=== PATIENT | male | born 1970 | race Caucasian/White ===

== ENCOUNTER 2017-11-16 17:37 | Emergency (ER) | payer SELFPAY ==
[~2017-11-16] VITALS: Ht 180.3 cm; Wt 86.2 kg
[2017-11-16 17:37] VITALS: BP_SYST 136
--- NOTE | 2017-11-16 17:40 | NUR ---
Patient triaged and placed in waiting room. VSS and patient appears in no acute distress at this time. Accompanied by FRIEND, awaiting available bed, and MD notified of need for MSE.
--- NOTE | 2017-11-16 18:13 | NUR ---
Patient to ER bed 5 to gown for evaluation. Side rails up. Report given to Nate GUAMAN.
--- NOTE | 2017-11-16 18:15 | NUR ---
Pt complains of having pain to right flank and radiates to right lower abdomen since Wednesday. Pt states he feels nauseous but has not vomited. Pt states he has constipation as well. No other injuries/complaints per patient or noted.
--- NOTE | 2017-11-16 18:20 | NUR ---
ER Dr. Avilez at bedside examining patient.
[2017-11-16] MEDS: ONDANSETRON 4 MG ODT TAB PO ONE (18:39)
[2017-11-16] MEDS: fentaNYL CITRATE/PF 100 MCG/2 ML AMP IM ONE (18:40)
--- NOTE | 2017-11-16 18:40 | NUR ---
Medication was given, pt tolerated well. No adverse reaction, will continue to monitor.
[2017-11-16 19:16] VITALS: BP_SYST 128
--- NOTE | 2017-11-16 19:16 | NUR ---
Patient given written and verbal discharge instructions and verbalizes understanding. ER MD discussed with patient the results and treatment provided. Patient in stable condition. ID arm band removed. Rx of Tramadol and Motrin given. Patient educated on pain management and to follow up with PMD. Pain Scale 2. Opportunity for questions provided and answered.
== END 2017-11-16 19:16 | disposition home or self-care (01) ==
LOC: SED 17:37
DX: N23 Unspecified renal colic (principal); R03.0 Elevated blood-pressure reading, without diagnosis of hypertension
CPT/HCPCS: 74176; 96372; 99284; J3010; Q0162

== ENCOUNTER 2018-03-24 14:35 | Inpatient (IN) | payer SELFPAY ==
[~2018-03-24] VITALS: Ht 185.4 cm; Wt 89.4 kg
--- NOTE | 2018-03-24 14:36 | NUR ---
Patient placed in bed 2.
--- NOTE | 2018-03-24 14:36 | NUR ---
Pt bib ALS c/c chest pain received ASA 162mg PO prior to arrival. Pt denies chest pain upon arrival.
[2018-03-24 14:37] VITALS: BP_SYST 156
--- NOTE | 2018-03-24 14:37 | NUR ---
Pt was brought in by ALS, complaining of chest pain. Per paramedics, pt was at [facility] for refill of blood pressure medications. Staff at clinic ended up calling 911 due to patient's "tightness of chest and shortness of breath." Pt had "chest discomfort" since last night but went away. Upon ED, pt states no chest discomfort, shortness of breath, N/V, or chest pain. No other injuries/complaints per patient or noted.
--- NOTE | 2018-03-24 14:38 | NUR ---
MD Hooker at bedside.
--- NOTE | 2018-03-24 14:50 | NUR ---
# 18 gauge angiocath placed to Left antecubital. Use of asceptic technique. Opsite placed over site. Blood return noted. Blood for lab drawn from site. Flushed with 10 cc of normal saline. No evidence of infiltration noted. Patient tolerated well.
[2018-03-24 15:10] LABS: BASOPHILS # (AUTO) 0.1 K/uL (0.0-0.2); BASOPHILS % (AUTO) 1.5 % (0.0-2.0); EOSINOPHILS # (AUTO) 0.1 K/uL (0.0-0.4); EOSINOPHILS % (AUTO) 1.3 % (0.0-4.0); HEMATOCRIT 43.7 % (36-54); LYMPHOCYTES # (AUTO) 1.6 K/uL (1.0-5.5); LYMPHOCYTES % (AUTO) 28.8 % (20.5-51.5); MEAN CORPUSCULAR HEMOGLOBIN 33 pg (27-31); MEAN CORPUSCULAR HGB CONC 34 % (32-36); MEAN CORPUSCULAR VOLUME 95 fL (79.0-98.0); MONOCYTES # (AUTO) 0.4 K/uL (0.0-1.0); MONOCYTES % (AUTO) 6.9 % (1.7-9.3); NEUTROPHILS # (AUTO) 3.2 K/uL (1.8-7.7); NEUTROPHILS % (AUTO) 61.5 % (40.0-70.0); PLATELET COUNT (AUTO) 195 K/uL (130-430); RED BLOOD CELL COUNT(AUTO) 4.59 MIL/uL (4.2-6.2); RED CELL DISTRIBUTION WIDTH 11.8 % (9.0-15.0); WHITE BLOOD COUNT (AUTO) 5.4 K/uL (4.8-10.8)
[2018-03-24 15:25] LABS: CALCIUM 8.9 mg/dL (8.4-11.0); CREATININE 1.32 mg/dL (0.55-1.30); POTASSIUM 3.6 mmol/L (3.5-5.1)
[2018-03-24 15:29] LABS: ALBUMIN 3.8 g/dL (3.4-4.8); TOTAL BILIRUBIN 0.5 mg/dL (0.0-1.0)
[2018-03-24 15:30] LABS: PROTHROMBIN TIME 10.1 SECS (9.5-12.5)
[2018-03-24] MEDS ORDERED: ATEN50TA PO (15:54)
--- NOTE | 2018-03-24 15:54 | NUR ---
Medication reconciliation completed with information provided by patient. Any prior medication reconciliation on file was reviewed and corrected.
--- NOTE | 2018-03-24 15:54 | NUR ---
Telemetry strip printed, interpreted as SINUS RHYTHM WITH BUNDLE BRANCH BLOCK at 68 bpm, and placed on the chart.
[2018-03-24] MEDS ORDERED: IBUP-1969 PO (16:13)
[2018-03-24 16:16] LABS: CKMB RELATIVE INDEX 0.4 (0.0-2.9); CREATINE KINASE MB 2.3 ng/mL (0-3.6)
--- NOTE | 2018-03-24 16:19 | NUR ---
Transfer to Telemetry via ACLS protocol. Licensed nurse present. IV present no signs or symptoms of infiltration.
--- NOTE | 2018-03-24 16:19 | NUR ---
Patient will be admitted to care of Dr. Orellana. Admitted to Telemetry unit. Will go to room 135. Belongings list completed. Summary report printed. Report will be given at bedside.
--- NOTE | 2018-03-24 16:19 | NUR ---
ADMISSION NOTE Received patient from ER via [facility], received report from CHUTE WORKER. Patient admitted with diagnosis of CHEST PAIN. Patient oriented to hospital routine, call light, toileting and safety-patient verbalized understanding.
--- NOTE | 2018-03-24 16:22 | NUR ---
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
[2018-03-24 16:34] VITALS: BP_SYST 153
[2018-03-24 16:36] LABS: BILIRUBIN,URINE NEGATIVE (NEGATIVE); BLOOD, URINE NEGATIVE (NEGATIVE); CLARITY/URINE CLEAR (CLEAR); COLOR,URINE YELLOW (YELLOW); GLUCOSE,URINE NEGATIVE (NEGATIVE); KETONES,URINE 1+ (NEGATIVE); LEUKOCYTE ESTERASE ,URINE NEGATIVE (NEGATIVE); NITRITE, URINE NEGATIVE (NEGATIVE); PROTEIN URINE NEGATIVE (NEGATIVE); UROBILINOGEN,URINE 0.2 (0.2-1.0)
[2018-03-24 16:50] LABS: BARBITURATE, URINE NEGATIVE (NEG <=200); BENZODIAZEPINE, URINE NEGATIVE (NEG <=150); CANNABINOID, URINE NEGATIVE (NEG <=50); COCAINE, URINE NEGATIVE (NEG <=150); METHAMPHETAMINES SCREEN,URINE NEGATIVE (NEG <=500); OPIATE, URINE NEGATIVE (NEG <=100); PHENCYCLIDINE SCREEN,URINE NEGATIVE (NEG <=25); URINE AMPHETAMINE NEGATIVE (NEG <=500); URINE METHADONE NEGATIVE (NEG <=200)
[2018-03-24 16:51] LABS: UR TRICYCLIC ANTIDEPRESSANTS NEGATIVE (NEG <=300); URINE OXYCODONE SCREEN NEGATIVE (NEG <=100); URINE PROPOXYPHENE SCREEN NEGATIVE (NEG <=300)
[2018-03-24] MEDS ORDERED: LOSARTAN/HYDROCHLOROTHIAZIDE TAB (HYZAAR 50-12.5 MG) PO SCH (19:00)
[2018-03-24] MEDS ORDERED: LOSARTAN POTASSIUM 50 MG TABLET (COZAAR) PO ONE (19:30)
[2018-03-24] MEDS ORDERED: HYDROCHLOROTHIAZIDE 12.5 MG CAPSULE (HCTZ) PO ONE (19:30)
[2018-03-24 19:46] VITALS: BP_SYST 155
--- NOTE | 2018-03-24 20:08 | NUR ---
PM SHIFT ASSESSMENT RECEIVED PATIENT LYING IN BED AOX4, DX: CHEST PAIN, PATIENT PAIN LEVEL 1/10 AT THIS TIME, NO SOB NOTED, VITAL SIGNS STABLE. ON ROOM AIR, IV LINE TO LAC INTACT AND PATENT, NO SIGNS OF INFILTRATION NOTED. PLAN OF CARE DISCUSSED, VERBALIZED UNDERSTANDING, COMPLIANT. ORIENTED TO USE CALL LIGHT FOR NURSE ASSISTANCE, LIGHT AND PHONE WITHIN REACH. DR. LABOY AT PATIENT'S BEDSIDE EARLIER, NEW MEDICATIONS ORDERED. PATIENT EDUCATED AND ADMINISTERED NEW MEDICATION ORDERS, WILL RECHECK BLOOD PRESSURE SHORTLY.
[2018-03-24 21:11] VITALS: BP_SYST 147
--- NOTE | 2018-03-24 21:29 | NUR ---
RN ROUNDS Patient awake, resting quietly in bed, denies any chest pain at this time, rechecked blood pressure, WNL. Dr. Orellana at patient's bedside, no new orders at this time.
[2018-03-24] MEDS ORDERED: INSULIN REGULAR, HUMAN 100 UNITS/ML, 10 ML VIAL (novoLIN R) SUBCUT PRN (21:45)
[2018-03-24] MEDS ORDERED: DEXTROSE 50% JECT 50 ML DISP.SYRIN IVP PRN (21:45)
[2018-03-24] MEDS ORDERED: ACETAMINOPHEN 325 MG TABLET PO PRN (22:15)
[2018-03-24] MEDS ORDERED: TEMAZEPAM 15 MG CAPSULE PO PRN (22:15)
--- NOTE | 2018-03-24 22:21 | NUR ---
RN ROUNDS Patient awake, denies any chest pain, friend at bedside, updated on plan of care and new orders, verbalized understanding. Call light remains within reach, safety measures in place, will monitor.
[2018-03-24 23:30] VITALS: BP_SYST 148
[2018-03-25] VITALS (8 sets, daily range): BP systolic 94–148
--- NOTE | 2018-03-25 00:33 | NUR ---
RN ROUNDS Patient resting quietly, denies any pain at this time, vital signs stable. Call light within reach, safety measures in place. Will monitor.
--- NOTE | 2018-03-25 02:02 | NUR ---
paged paged for Dr Orellana, dialed . s/w Med.
[2018-03-25] MEDS ORDERED: ONDANSETRON HCL 4 MG/2 ML VIAL IVP PRN (02:15)
[2018-03-25] MEDS ORDERED: ONDANSETRON HCL 4 MG/2 ML VIAL ONE (02:23)
--- NOTE | 2018-03-25 02:34 | NUR ---
RN SANGTIA/ Patient HR dropped to 30s according to tele monitor. Checked on patient and patient up and ambulated to bathroom with steady gait. Denied any chest pain. Came back to check on patient after a couple of minutes due to heart rate remaining in the 30s. Patient out of bathroom and sitting on side of his bed, diaphoretic, states he is dizzy and nauseated. Patient's vital signs taken, placed on 02 2l NC. Patient stated " I passed out in the bathroom" when asked if patient fell, patient stated " when I woke up I was on the floor". Patient denies hitting his head. No injury noted to head. Paged Dr. Orellana, called back, updated him on patient's status and stated he passed out in the bathroom. New orders for nausea medication given and for another urine drug screen. No other orders given. Administered zofran 4 mg IVP for nausea. Patient's vital signs stable at this time. Educated patient to be on bedrest for now and not to ambulate without assistance. Verbalized understanding. Safety measures in place, bed alarm on. Addendum: 03/25/18 at 0254 by Lucila Poon RN blood sugar checked, 118.
--- NOTE | 2018-03-25 04:32 | NUR ---
RN ROUNDS Patient asleep, respirations even and unlabored, heart rate 59, vital signs stable. Safety measures in place, bed alarm on, call light within reach, will closely monitor.
--- NOTE | 2018-03-25 06:39 | NUR ---
CLOSING NOTE Patient awake, c/o of a headache, tylenol 650 mg po given, patient educated to be on bed rest for now, urinal at bedside. Vital signs stable. Patient needs attended to, fall and safety measures in place, call light remains within reach, will monitor until report given to bedside nurse.
[2018-03-25 06:48] LABS: BASOPHILS % (AUTO) 0.5 % (0.0-2.0); EOSINOPHILS # (AUTO) 0.1 K/uL (0.0-0.4); EOSINOPHILS % (AUTO) 1.7 % (0.0-4.0); HEMATOCRIT 45.2 % (36-54); HEMOGLOBIN 15.6 g/dL (14.0-18.0); LYMPHOCYTES # (AUTO) 1.3 K/uL (1.0-5.5); LYMPHOCYTES % (AUTO) 20.6 % (20.5-51.5); MEAN CORPUSCULAR HEMOGLOBIN 33 pg (27-31); MEAN CORPUSCULAR HGB CONC 35 % (32-36); MEAN CORPUSCULAR VOLUME 96 fL (79.0-98.0); MONOCYTES # (AUTO) 0.5 K/uL (0.0-1.0); MONOCYTES % (AUTO) 7.7 % (1.7-9.3); NEUTROPHILS # (AUTO) 4.6 K/uL (1.8-7.7); NEUTROPHILS % (AUTO) 69.5 % (40.0-70.0); PLATELET COUNT (AUTO) 191 K/uL (130-430); RED BLOOD CELL COUNT(AUTO) 4.73 MIL/uL (4.2-6.2); RED CELL DISTRIBUTION WIDTH 11.9 % (9.0-15.0); WHITE BLOOD COUNT (AUTO) 6.5 K/uL (4.8-10.8)
[2018-03-25 07:14] LABS: ALBUMIN 3.7 g/dL (3.4-4.8); CALCIUM 9.4 mg/dL (8.4-11.0); CREATININE 1.43 mg/dL (0.55-1.30); FREE T4 (FREE THYROXINE) 1.2 ng/dL (0.6-1.6); POTASSIUM 3.7 mmol/L (3.5-5.1); THYROID STIMULATING HORMONE 2.53 uIu/mL (0.34-4.82); TOTAL BILIRUBIN 0.7 mg/dL (0.0-1.0)
--- NOTE | 2018-03-25 07:36 | NUR ---
Notes bed alarm went off, pt seen attempting to get out of bed, pt educated on use of call light and told to call for assistance, pt verbalized understanding, pt offered toileting, pt refused toileting, no additional needs at this time, fall precautions in place, bed alarm on, bed in low position, side rails up x2, call light within reach.
--- NOTE | 2018-03-25 08:00 | NUR ---
notes- Pt seems upset. Pt stated that he does not want to be treated like a prisoner. he refused to use urinal and bed alarm. Pt stated that he feels fine and does not feel dizzy anymore. Reinforce teachings for safety and call especially when he is getting out of bed. Pt verbalize understanding at this time. Assisted to the bathroom and back to bed. denies any chest pain, dizziness or shortness of breath. will monitor.
[2018-03-25] MEDS ORDERED: LOSARTAN POTASSIUM 50 MG TABLET (COZAAR) PO SCH (09:00)
[2018-03-25] MEDS ORDERED: HYDROCHLOROTHIAZIDE 12.5 MG CAPSULE (HCTZ) PO SCH (09:00)
[2018-03-25] MEDS: LOSARTAN POTASSIUM 50 MG TABLET (COZAAR) PO SCH (09:00)
--- NOTE | 2018-03-25 09:33 | NUR ---
MD Rounds/Medication MD rounds with Dr. Richardson, doctor gave orders to hold morning BP meds.
--- NOTE | 2018-03-25 09:40 | NUR ---
Notes pt resting in bed, pt educated about morning meds and MD orders to hold morning medications, pt verbalized understanding, no additional needs at this time, fall and aspiration precautions in place.
[2018-03-25] MEDS ORDERED: NS 100 ML IV ONE (10:15)
--- NOTE | 2018-03-25 10:52 | NUR ---
Paged Paged Dr. Orellana, pt complaining of headache, awaiting call back.
--- NOTE | 2018-03-25 11:30 | NUR ---
Paged Paged Dr. Orellana regarding pain medication for pt, pt reporting increasing migraine headache, awaiting call back.
[2018-03-25] MEDS ORDERED: SUMAtriptan SUCCINATE 6 MG/0.5 ML VIAL SUBCUT PRN (12:15)
--- NOTE | 2018-03-25 12:19 | NUR ---
Spoke with MD Spoke with Dr. Orellana, aware of pt complaint of pain, new orders received.
--- NOTE | 2018-03-25 12:43 | NUR ---
Pharmacy called pharmacy regarding PRN pain medication order, awaiting input into eMar.
--- NOTE | 2018-03-25 13:05 | NUR ---
Medication/Pain management pt educated on nonpharmaceutical pain management techniques, pt educated on PRN pain medication use and side effects, pt verbalized understanding, pt tolerated medication administration well, no additional needs at this time, fall and aspiration precautions in place.
[2018-03-25 13:58] LABS: BARBITURATE, URINE NEGATIVE (NEG <=200); BENZODIAZEPINE, URINE NEGATIVE (NEG <=150); CANNABINOID, URINE NEGATIVE (NEG <=50); COCAINE, URINE NEGATIVE (NEG <=150); METHAMPHETAMINES SCREEN,URINE NEGATIVE (NEG <=500); OPIATE, URINE NEGATIVE (NEG <=100); PHENCYCLIDINE SCREEN,URINE NEGATIVE (NEG <=25); UR TRICYCLIC ANTIDEPRESSANTS NEGATIVE (NEG <=300); URINE AMPHETAMINE NEGATIVE (NEG <=500); URINE METHADONE NEGATIVE (NEG <=200); URINE OXYCODONE SCREEN NEGATIVE (NEG <=100); URINE PROPOXYPHENE SCREEN NEGATIVE (NEG <=300)
[2018-03-25] MEDS: NACL 0.9% 1,000 ML IV SCH (16:17)
--- NOTE | 2018-03-25 16:21 | NUR ---
RN Rounds/Medication pt educated on purpose of IV fluids, pt verbalized understanding, pt resting in bed, family at bedside, no complaints of pain, no shortness of breath, no chest pain, no additional needs at this time, fall and aspiration precautions in place, call light within reach.
--- NOTE | 2018-03-25 18:00 | NUR ---
RN Rounds pt resting in bed, pt denies any pain at this time, no chest pain, no shortness of breath, IV site patent and infusing, IV dressing dry, clean, and intact, no additional needs at this time, fall and aspiration precautions in place.
--- NOTE | 2018-03-25 18:54 | NUR ---
Closing pt resting in bed, no complaints of pain, no chest pain, no shortness of breath, denies any dizziness, IV patent and infusing, IV site clean, dry, and intact, no additional needs at this time, will endorse care to jose miguel carcamo RN.
--- NOTE | 2018-03-25 19:10 | NUR ---
OPENING NOTES Received SBAR report from dayshift RN. Patient is awake/alert/oriented. No acute distress noted: 137/78 87 17 98.5 95% room air, 0/10 pain/discomfort at this time. IV site noted to left AC 18G and is infusing NS @ 70ml/hr. Verified patency with good blood return/flush. Introduced myself, updated whiteboard, discussed plan of care. Fall precautions noted and discussed. Bed to lowest position, 3 side rails raised, call light within reach, bed alarm activated. Will continue to monitor patient.
--- NOTE | 2018-03-25 21:05 | NUR ---
ROUNDS Patient is awake/alert/oriented, watching television. Respirations are even and non-labored, so signs of acute distress. He does not need anything at this time. Bed to lowest position, 2 upper side rails raised bilaterally, call light within reach, bed alarm activated. Will continue to monitor patient.
--- NOTE | 2018-03-25 22:03 | NUR ---
LIVESTOCK JUDGING COACH CALLED - Telemetry battery low Saw patient, changed batteries, verified function. Patient does not need anything at this time.
--- NOTE | 2018-03-26 00:21 | NUR ---
ROUNDS Patient is sleeping, eyes closed with no acute distress noted. Symmetric rise and fall of chest with respirations @ 16/min. IV site is clean/dry/intact with NS infusing @ 70ml/hr. Bed to lowest position, 2 upper side rails raised bilaterally, call light within reach, bed alarm activated. Will continue to monitor patient.
[2018-03-26 01:02] VITALS: BP_SYST 134
--- NOTE | 2018-03-26 02:30 | NUR ---
ROUNDS Patient is resting comfortably with eyes closed but easily arouses to light stimulation. No shortness of breath noted; 16/min. IV site clean/dry/intact with no signs of infiltration. Bed to lowest position, 3 side rails raised, bed alarm activated, call light within reach. Will continue to monitor patient.
--- NOTE | 2018-03-26 04:06 | NUR ---
ROUNDS Patient is currently sleeping, eyes closed with no labored breathing. IV site is clean/dry/intact. Bed to lowest position, 3 side rails raised, bed alarm activated, call light within reach. Will continue to monitor patient.
[2018-03-26] MEDS: NACL 0.9% 1,000 ML IV SCH (05:11)
--- NOTE | 2018-03-26 05:13 | NUR ---
ROUNDS Patient resting but wakes up as I enter. He does not need anything at this time. He says he rested really well. Changed IVF as scheduled. IV site is clean/dry/intact and infusing NS @70ml/hr. Bed to lowest position, 2 side rails raised bilaterally, call light within reach, bed alarm activated. Will continue to monitor patient.
--- NOTE | 2018-03-26 06:58 | NUR ---
CLOSING NOTES All needs, interventions, expectations met by noc shift RN. Fall precautions upheld throughout shift. Labs drawn this am still pending. Care of patient to be endorsed to dayshift RN.
[2018-03-26 07:16] LABS: CALCIUM 9.2 mg/dL (8.4-11.0); CREATININE 1.49 mg/dL (0.55-1.30); POTASSIUM 3.8 mmol/L (3.5-5.1)
--- NOTE | 2018-03-26 07:35 | NUR ---
OPENING NOTE PATIENT REPORT RECEIVED FROM SENIOR OFFICE ASSISTANT NURSE, ROWENA IQBAL. PATIENT RESTING COMFORTABLY. PREVIOUSLY HAD EPISODE OF FAINTING IN RESTROOM. PATIENT DENIES DIZZINESS OR NAUSEA AT THIS TIME. PATIENT DENIES ANY PAIN, AND HAS NO NOTABLE SIGNS OF DISTRESS AT THIS TIME. PATIENT ENCOURAGED TO CALL IF NEEDS [facility]. WILL CONTINUE TO FOLLOW UP AND MONITOR PATIENT FOR CHANGES IN STATUS.
[2018-03-26 08:00] VITALS: BP_SYST 134
--- NOTE | 2018-03-26 09:40 | NUR ---
NOTE PATIENT RESTING COMFORTABLY. NEEDS ARE MET AT THIS TIME. PATIENT ENCOURAGED TO CALL IF NEEDS [facility]. PATIENT WOULD LIKE TO GO HOME IF POSSIBLE. DR. MATHIS AND DR. HOPE TO SEE. PATIENT AWARE. WILL CONTINUE TO FOLLOW UP AND MONITOR.
[2018-03-26] MEDS: LOSARTAN POTASSIUM 50 MG TABLET (COZAAR) PO SCH (09:42)
--- NOTE | 2018-03-26 11:45 | NUR ---
PATIENT RESTING: Patient resting quietly. No acute distress noted. Vital signs within normal range. Patient would like to be discharge home, will follow up with MD when available.
[2018-03-26 12:00] VITALS: BP_SYST 133
--- NOTE | 2018-03-26 13:45 | NUR ---
NOTE PATIENT RESTING COMFORTABLY. NEEDS ARE MET AT THIS TIME. PATIENT DENIES CHEST PAIN, SHORTNESS OF BREATH, NAUSEA, AND DIZZINESS AT THIS TIME. PATIENT ENCOURAGED TO CALL IF NEEDS [facility]. BELONGINGS WITHIN REACH, AND IVF RUNNING PER MD ORDERS. WILL CONTINUE TO FOLLOW UP AND MONITOR PATIENT FOR CHANGES IN STATUS.
[2018-03-26] MEDS ORDERED: LOSA50TA3 PO (15:47)
--- NOTE | 2018-03-26 15:50 | NUR ---
NOTE PATIENT WAS SEEN BY DR. HOPE. ORDERED STAT RENAL ULTRASOUND TO EVALUATE HIGH CREATININE LEVELS. PATIENT AWARE IF U/S IS NORMAL, OKAY TO BE DISCHARGED HOME. WILL CALL RADIOLOGY TO VERIFY CALL IN OF [employer] TECH.
--- NOTE | 2018-03-26 16:00 | NUR ---
NOTE VERIFIED WITH RADIOLOGY THE US TECH WAS CALLED IN, CONFIRMED. PATIENT AWARE OF PENDING EXAM. WILL CONTINUE TO FOLLOW UP AND MONITOR.
[2018-03-26 18:17] VITALS: BP_SYST 132
--- NOTE | 2018-03-26 18:40 | NUR ---
D/C Patient Patient given medication reconciliation form and D/C instructions. Exit Care provided. Patient verbalized understanding. MD discussed with patient the results and treatment provided. Ambulatory with steady gait for discharge to home. Patient in stable condition, ID band removed. IV catheter removed, intact and dressing applied, no active bleeding. Rx of LOSARTAN given. Patient educated on pain management. All belongings sent with patient.
== END 2018-03-26 18:41 | disposition home or self-care (01) | DRG 313 ==
LOC: SED 14:35 → STU 15:55
PROVIDERS: ADMIT Internal Medicine; ATTEND Internal Medicine
DX: R07.89 Other chest pain (principal); N17.0 Acute kidney failure with tubular necrosis; I10 Essential (primary) hypertension; E86.0 Dehydration; Z91.19 Patient's noncompliance with other medical treatment and regimen
CPT/HCPCS: 36415; 71045; 76770; 80048; 80053; 80061; 80307; 81003; 82550-TC; 82553-TC; 82962; 83735-TC; 83880; 84439; 84443-TC; 84484; 85025; 85379; 85610-TC; 85730-TC; 93005; 93306; 99285; J2405; J3030; J7030

== ENCOUNTER 2018-07-01 08:15 | Outpatient (CLI) | payer SELFPAY ==
[~2018-07-01 08:15] MED LIST: LOSA50TA3 PO
== END 2018-07-01 20:21 | disposition home or self-care (01) ==
LOC: SRD 08:15
DX: N20.0 Calculus of kidney (principal)
CPT/HCPCS: 74018

== ENCOUNTER 2018-10-24 07:34 | Emergency (ER) | payer SELFPAY ==
[~2018-10-24] VITALS: Ht 180.3 cm; Wt 80.3 kg
[2018-10-24 07:46] VITALS: BP_SYST 155
[2018-10-24 08:24] LABS: BILIRUBIN,URINE NEGATIVE (NEGATIVE); BLOOD, URINE NEGATIVE (NEGATIVE); CLARITY/URINE CLEAR (CLEAR); COLOR,URINE YELLOW (YELLOW); GLUCOSE,URINE NEGATIVE (NEGATIVE); KETONES,URINE NEGATIVE (NEGATIVE); LEUKOCYTE ESTERASE ,URINE NEGATIVE (NEGATIVE); NITRITE, URINE NEGATIVE (NEGATIVE); PROTEIN URINE NEGATIVE (NEGATIVE); UROBILINOGEN,URINE 0.2 (0.2-1.0)
[2018-10-24 08:29] LABS: HEMATOCRIT 41.3 % (36-54); LYMPHOCYTES # (AUTO) 1.2 K/uL (1.0-5.5); LYMPHOCYTES % (AUTO) 25.3 % (20.5-51.5); MEAN CORPUSCULAR HEMOGLOBIN 33 pg (27-31); MEAN CORPUSCULAR HGB CONC 34 % (32-36); MEAN CORPUSCULAR VOLUME 96 fL (79.0-98.0); MONOCYTES # (AUTO) 0.2 K/uL (0.0-1.0); MONOCYTES % (AUTO) 4.9 % (1.7-9.3); NEUTROPHILS # (AUTO) 3.2 K/uL (1.8-7.7); NEUTROPHILS % (AUTO) 67.8 % (40.0-70.0); PLATELET COUNT (AUTO) 212 K/uL (130-430); RED BLOOD CELL COUNT(AUTO) 4.28 MIL/uL (4.2-6.2); RED CELL DISTRIBUTION WIDTH 12.4 % (9.0-15.0); WHITE BLOOD COUNT (AUTO) 4.7 K/uL (4.8-10.8)
[2018-10-24 08:36] LABS: BARBITURATE, URINE NEGATIVE (NEG <=200); BENZODIAZEPINE, URINE NEGATIVE (NEG <=150); CANNABINOID, URINE NEGATIVE (NEG <=50); COCAINE, URINE NEGATIVE (NEG <=150); METHAMPHETAMINES SCREEN,URINE NEGATIVE (NEG <=500); OPIATE, URINE NEGATIVE (NEG <=100); PHENCYCLIDINE SCREEN,URINE NEGATIVE (NEG <=25); URINE AMPHETAMINE NEGATIVE (NEG <=500); URINE METHADONE NEGATIVE (NEG <=200); URINE OXYCODONE SCREEN NEGATIVE (NEG <=100); URINE PROPOXYPHENE SCREEN NEGATIVE (NEG <=300)
[2018-10-24 08:37] LABS: UR TRICYCLIC ANTIDEPRESSANTS NEGATIVE (NEG <=300)
[2018-10-24 08:38] LABS: CALCIUM 8.8 mg/dL (8.4-11.0); CREATININE 1.14 mg/dL (0.55-1.30)
[2018-10-24 08:52] LABS: ALBUMIN 3.5 g/dL (3.4-4.8); FREE T4 (FREE THYROXINE) 0.9 ng/dl (0.8-1.5); THYROID STIMULATING HORMONE 1.88 uIu/mL (0.36-3.74); TOTAL BILIRUBIN 0.3 mg/dL (0.0-1.0)
[2018-10-24 09:54] VITALS: BP_SYST 140
== END 2018-10-24 09:54 | disposition home or self-care (01) ==
LOC: SED 07:34
DX: K92.2 Gastrointestinal hemorrhage, unspecified (principal); R63.4 Abnormal weight loss
CPT/HCPCS: 36415; 80053; 80307; 81003; 84439; 84443-TC; 85025; 99284